=== PATIENT | female | born 1945 | race Caucasian/White ===

== ENCOUNTER → 2016-07-09 | Outpatient (CLI) | payer OTHER ==
[~2016-07-09] MED LIST: ADVA500A INH; ALBU6.7H INH; DOXY100T PO; FERR324T4 PO; FLON0.053; HYDR-2768 PO; OYST500T77 PO; PRED20 PO; PRIN20TA2 PO; VITA500T10 PO
--- NOTE | 2016-07-09 14:15 | RSPPFT ---
DATE OF PROCEDURE: 07/09/16 COMMENTS: VOLUMES DYNAMIC: FVC and FEV1 severely reduced. STATIC: RV mildly increased; TLC mildly reduced; VTG normal. FLOWS: FEV1% moderately reduced; FEF 25-75 severely reduced. DIFFUSION: Mildly reduced. FLOW VOLUME LOOP: Pattern of variable intrathoracic airways obstruction. IMPRESSION: Moderate to severe obstructive ventilatory defect with a mild reduction in diffusion. Minimal hyperinflation is present. Airways resistance is increased. There is improvement post-bronchodilator.
== END ==
LOC: HRSP 09:35
PROVIDERS: ATTEND Internal Medicine
DX: J45.909 Unspecified asthma, uncomplicated (principal)
CPT/HCPCS: 94060; 94620; 94726; 94729; 95012

== ENCOUNTER 2017-04-01 10:25 | Emergency (ER) | payer OTHER ==
[~2017-04-01] VITALS: Ht 170.2 cm; Wt 61.0 kg
[2017-04-01 10:27] VITALS: BP 137/92; PULSE 100; RESP 20; TEMP 97.6; O2SAT 96
[2017-04-01 10:42] VITALS: BP 157/74; PULSE 73; RESP 17; O2SAT 98
[2017-04-01] MEDS ORDERED: DILT120T PO (10:42)
[2017-04-01] MEDS ORDERED: METO50TA PO (10:42)
[2017-04-01] MEDS ORDERED: APIX5TAB PO (10:42)
[2017-04-01 11:22] LABS: AUTOMATED NEUTROPHIL # 7.2 TH/MM3 (1.8-7.7); BASOPHIL # 0.2 TH/MM3 (0-0.2); BASOPHIL % 1.4 % (0.0-2.0); EOSINOPHIL # 2.9 TH/MM3 (0-0.4); EOSINOPHIL % 22.1 % (0.0-4.0); HEMATOCRIT 38.8 % (35.0-46.0); HEMOGLOBIN 12.5 GM/DL (11.6-15.3); LYMPH % 15.3 % (9.0-44.0); MEAN CELL VOLUME 67.1 FL (80.0-100.0); MEAN CORPUSCULAR HEMOGLOBIN 21.5 PG (27.0-34.0); MEAN CORPUSCULAR HGB CONC 32.1 % (32.0-36.0); MONO % 6.9 % (0.0-8.0); MONOCYTE # 0.9 TH/MM3 (0-0.9); NEUT % 54.3 % (16.0-70.0); PLATELET COUNT 332 TH/MM3 (150-450); RED BLOOD COUNT 5.79 MIL/MM3 (4.00-5.30); WHITE BLOOD COUNT 13.3 TH/MM3 (4.0-11.0)
[2017-04-01 11:33] LABS: INTERNATIONAL NORMALIZED RATIO 1.1 RATIO; PROTHROMBIN TIME - PATIENT 10.8 SEC (9.8-11.6)
[2017-04-01 11:47] LABS: ALBUMIN 3.7 GM/DL (3.4-5.0); ALT (GPT) 20 U/L (10-53); AST (GOT) 23 U/L (15-37); BICARBONATE 32.8 MEQ/L (21.0-32.0); BLOOD UREA NITROGEN 30 MG/DL (7-18); CALCIUM 9.8 MG/DL (8.5-10.1); CHLORIDE 97 MEQ/L (98-107); CREATININE 1.13 MG/DL (0.50-1.00); GLOMERULAR FILTRATION RATE 48 ML/MIN (>89); GLUCOSE,RANDOM 89 MG/DL (74-106); SODIUM (NA) 136 MEQ/L (136-145)
[2017-04-01 11:51] LABS: ALKALINE PHOSPHATASE 45 U/L (45-117); TOTAL BILIRUBIN ADULT 0.5 MG/DL (0.2-1.0); TOTAL PROTEIN 7.3 GM/DL (6.4-8.2); TROPONIN I LESS THAN 0.02 NG/ML (0.02-0.05)
[2017-04-01 12:10] VITALS: BP 114/78; PULSE 71; RESP 16; TEMP 97.8; O2SAT 99
--- NOTE | 2017-04-01 12:28 | PD ---
HPI Chief Complaint: Cardiac Complaint Time Seen by Provider: 10:33 Travel History International Travel<30 days: No Contact w/Intl Traveler<30days: No Traveled to known affect area: No History of Present Illness HPI This is a 71-year-old female who presents to the emergency department with 3 days of palpitations, feeling her heart is intermittently racing, feeling her extra heartbeats in her chest, constant, moderate severity, associated with some shortness of breath and dyspnea on exertion. She denies any chest pain. She says this feels similar to when she's been in atrial flutter in the past. She has a history of prior ablation and cardioversion. She follows with Dr. Waters. She also has had a recent upper respiratory infection and has been using her bronchodilators more often due to cough. PFSH Past Medical History Hx Anticoagulant Therapy: Yes (ELOQUIS) Asthma: Yes Autoimmune Disease: Yes (CHURG-THONY SYNDROME) Cardiovascular Problems: Yes (PVD) Diminished Hearing: No Hypertension: Yes Neurologic: Yes (NEUROPATHY) Tetanus Vaccination: > 5 Years Influenza Vaccination: Yes Menopausal: Yes : 2 Para: 2 Past Surgical History Appendectomy: Yes Cholecystectomy: Yes Eye Surgery: Yes (BILAT. CATARACTS) Tonsillectomy: Yes Other Surgery: Yes (BREAST REDUCTION, SKIN GRAFTS) Social History Alcohol Use: No Tobacco Use: No (40 years ago ) Substance Use: No Allergies-Medications (Allergen,Severity, Reaction): Coded Allergies: Sulfa (Sulfonamide Antibiotics) (Unverified Allergy, Severe, Anaphylaxis, 04/01/17) Reported Meds & Prescriptions Reported Meds & Active Scripts Active Review of Systems Except as stated in HPI: all other systems reviewed are Neg Physical Exam Narrative GENERAL:Well appearing, no acute distress SKIN: Focused skin assessment warm and dry. HEAD: Atraumatic. Normocephalic. EYES: Pupils equal and round. No injection or drainage. ENT: Moist mucous membranes NECK: Trachea midline. CARDIOVASCULAR: Regular rate and rhythm. No murmur appreciated. RESPIRATORY: Clear to auscultation. Breath sounds equal bilaterally. GASTROINTESTINAL: Abdomen soft, non-tender, nondistended. MUSCULOSKELETAL: No obvious deformities. NEUROLOGICAL: Awake and alert. No obvious cranial nerve deficits. Moving all extremities. PSYCHIATRIC: Appropriate mood and affect; insight and judgment normal. Data Data Last Documented VS Vital Signs Date Time Temp Pulse Resp B/P (MAP) Pulse Ox O2 Delivery O2 Flow Rate FiO2 04/01/17 13:50 97.8 76 16 132/81 (98) 98 04/01/17 12:10 Room Air Orders Orders Complete Blood Count With Diff (04/01/17 11:03) Comprehensive Metabolic Panel (04/01/17 11:03) Troponin I (04/01/17 11:03) ^ Insert Iv (04/01/17 11:03) Prothrombin Time / Inr (Pt) (04/01/17 11:03) Act Partial Throm Time (Ptt) (04/01/17 11:03) Ed Discharge Order (04/01/17 13:43) Electrocardiogram (04/01/17 12:46) Electrocardiogram (04/01/17 10:42) Labs Laboratory Tests Test 04/01/17 10:55 White Blood Count 13.3 TH/MM3 Red Blood Count 5.79 MIL/MM3 Hemoglobin 12.5 GM/DL Hematocrit 38.8 % Mean Corpuscular Volume 67.1 FL Mean Corpuscular Hemoglobin 21.5 PG Mean Corpuscular Hemoglobin Concent 32.1 % Red Cell Distribution Width 16.0 % Platelet Count 332 TH/MM3 Mean Platelet Volume 9.0 FL Neutrophils (%) (Auto) 54.3 % Lymphocytes (%) (Auto) 15.3 % Monocytes (%) (Auto) 6.9 % Eosinophils (%) (Auto) 22.1 % Basophils (%) (Auto) 1.4 % Neutrophils # (Auto) 7.2 TH/MM3 Lymphocytes # (Auto) 2.0 TH/MM3 Monocytes # (Auto) 0.9 TH/MM3 Eosinophils # (Auto) 2.9 TH/MM3 Basophils # (Auto) 0.2 TH/MM3 CBC Comment DIFF FINAL Differential Comment Prothrombin Time 10.8 SEC Prothromb Time International Ratio 1.1 RATIO Activated Partial Thromboplast Time 25.2 SEC Blood Urea Nitrogen 30 MG/DL Creatinine 1.13 MG/DL Random Glucose 89 MG/DL Total Protein 7.3 GM/DL Albumin 3.7 GM/DL Calcium Level 9.8 MG/DL Alkaline Phosphatase 45 U/L Aspartate Amino Transf (AST/SGOT) 23 U/L Alanine Aminotransferase (ALT/SGPT) 20 U/L Total Bilirubin 0.5 MG/DL Sodium Level 136 MEQ/L Potassium Level 4.0 MEQ/L Chloride Level 97 MEQ/L Carbon Dioxide Level 32.8 MEQ/L Anion Gap 6 MEQ/L Estimat Glomerular Filtration Rate 48 ML/MIN Troponin I LESS THAN 0.02 NG/ML MDM Medical Decision Making Medical Screen Exam Complete: Yes Emergency Medical Condition: Yes Interpretation(s) afebrile, tachycardic, hypertensive leukocytosis 22% eosinophils electrolytes reassuring troponin normal EKG: atrial flutter, st depression in the lateral leads Differential Diagnosis Atrial flutter, atrial fibrillation, myocardial infarction, angina, electrolyte abnormality Narrative Course This is a 71-year-old female who presents to the emergency department with palpitations and weakness for the past several days. She has a history of atrial flutter which is been treated by both ablation and cardioversion in the past. Here in the emergency department she is in atrial flutter and her rate is controlled. She is placed on a monitor and an IV was established. Labs were obtained which were all reassuring. I spoke to Dr. Jaya Watesr who wants her to follow-up in the office after discharge from the emergency department and he plans to do a cardioversion tomorrow. Patient was discharged home. Diagnosis Primary Impression: Atrial flutter Qualified Codes: I48.3 - Typical atrial flutter Patient Instructions: General Instructions Additional Instructions: If you develop severe chest pain, shortness of breath, sweating, lightheadedness , dizziness or difficulty breathing return to the emergency department immediately. Follow up with Dr. Waters's office this afternoon to be evaluated prior to cardioversion tomorrow. Med/Other Pt SpecificInfo: No Change to Meds Disposition: 01 DISCHARGE HOME Condition: Stable Elisabeth Barba MD Apr 01, 2017 12:28
[2017-04-01 13:50] VITALS: BP 132/81; TEMP 97.8
[2017-04-02] MEDS ORDERED: MULTTAB67 PO (08:49)
[2017-04-02] MEDS ORDERED: FLUT1INH INH (08:49)
[2017-04-02] MEDS ORDERED: IMUR50TA5 PO (08:49)
[2017-04-02] MEDS ORDERED: FLUT1SPR5 EACH NARE (08:49)
[2017-04-02] MEDS ORDERED: HYDR12.57 PO (08:49)
[2017-04-02] MEDS ORDERED: HYDR-3516 PO (08:49)
[2017-04-02] MEDS ORDERED: VITA1000 PO (08:49)
[2017-04-02] MEDS ORDERED: SOTA80TA PO (08:49)
[2017-04-02] MEDS ORDERED: DIGO0.12 PO (08:49)
[2017-04-02] MEDS ORDERED: COQ-100C5 PO (08:49)
[2017-04-02] MEDS ORDERED: ALBU6.7H INH (08:49)
[2017-04-02] MEDS ORDERED: KRIL1CAP21 PO (08:49)
[2017-04-02] MEDS ORDERED: VITA250T3 PO (08:49)
[2017-04-02] MEDS ORDERED: HYDR-4107 PO ×2 (08:49)
[2017-04-02] MEDS ORDERED: LISI-515 PO (08:49)
--- NOTE | 2017-04-04 00:03 | EKG ---
Date Performed: 04/01/2017 Time Performed: 12:46:15 PTAGE: 71 years EKG: Sinus rhythm WITH FIRST DEGREE AV BLOCK NO PREVIOUS TRACING DOCTOR: Jasper Barraza Interpretating Date/Time 04/04/2017 00:01:50
--- NOTE | 2017-04-04 00:10 | EKG ---
Date Performed: 04/01/2017 Time Performed: 10:42:26 PTAGE: 71 years EKG: ATRIAL FLUTTER/TACHYCARDIA SEPTAL MYOCARDIAL INFARCTION NO PREVIOUS TRACING DOCTOR: Jasper Barraza Interpretating Date/Time 04/04/2017 00:08:18
== END 2017-04-01 13:50 | disposition home or self-care (01) ==
LOC: NEPE 10:25
DX: I48.3 Typical atrial flutter (principal); J45.909 Unspecified asthma, uncomplicated; I73.9 Peripheral vascular disease, unspecified; I10 Essential (primary) hypertension; G62.9 Polyneuropathy, unspecified; M30.1 Polyarteritis with lung involvement [Churg-Strauss]; R06.02 Shortness of breath
CPT/HCPCS: 80053; 84484; 85025; 85610; 85730; 93005; 99284

== ENCOUNTER 2017-04-02 07:20 | Day surgery (SDC) | payer OTHER ==
[~2017-04-02 07:20] MED LIST changes: -ADVA500A INH; -ALBU6.7H INH; +APIX5TAB PO; +DILT120T PO; -DOXY100T PO; -FERR324T4 PO; -FLON0.053; -HYDR-2768 PO; +METO50TA PO; -OYST500T77 PO; -PRED20 PO; -PRIN20TA2 PO; -VITA500T10 PO
[2017-04-02] MEDS ORDERED: SODIUM CHLORID 0.9% 500 ML IV PRN (08:15)
[2017-04-02] MEDS ORDERED: POVIDONE IODINE 5% (ANTISEPSIS KIT) 4 APPLICATIONS EACH NARE PRN (08:15)
[2017-04-02] MEDS ORDERED: LACTATED RINGER'S 1000 ML IV PRN (08:15)
[2017-04-02] MEDS ORDERED: METOPROLOL TARTRATE 25 MG TAB PO PRN (08:15)
[2017-04-02] MEDS ORDERED: CHLORHEXIDINE GLUCONATE 2 % 1 PACK (2 CLOTHS) TOPICAL PRN (08:15)
[2017-04-02] MEDS ORDERED: INSULIN HUMAN REGULAR 1,000 UNITS/10 ML VIAL SQ PRN (08:15)
[2017-04-02] MEDS ORDERED: HYDR-4107 PO ×2 (08:49)
[2017-04-02] MEDS ORDERED: VITA1000 PO (08:49)
[2017-04-02] MEDS ORDERED: HYDR12.57 PO (08:49)
[2017-04-02] MEDS ORDERED: COQ-100C5 PO (08:49)
[2017-04-02] MEDS ORDERED: IMUR50TA5 PO (08:49)
[2017-04-02] MEDS ORDERED: ALBU6.7H INH (08:49)
[2017-04-02] MEDS ORDERED: FLUT1SPR5 EACH NARE (08:49)
[2017-04-02] MEDS ORDERED: MULTTAB67 PO (08:49)
[2017-04-02] MEDS ORDERED: KRIL1CAP21 PO (08:49)
[2017-04-02] MEDS ORDERED: HYDR-3516 PO (08:49)
[2017-04-02] MEDS ORDERED: DIGO0.12 PO (08:49)
[2017-04-02] MEDS ORDERED: FLUT1INH INH (08:49)
[2017-04-02] MEDS ORDERED: LISI-515 PO (08:49)
[2017-04-02] MEDS ORDERED: SOTA80TA PO (08:49)
[2017-04-02] MEDS ORDERED: VITA250T3 PO (08:49)
[2017-04-02] MEDS ORDERED: PROPOFOL 200 MG/20 ML AMP IV ONE (12:00)
--- NOTE | 2017-04-02 15:09 | MA ---
cc: ANDREIA LEDEZMA M.D. DATE 04/02/2017 PREOPERATIVE DIAGNOSIS Atrial flutter. POSTOPERATIVE DIAGNOSIS Atrial flutter. PROCEDURE Synchronized cardioversion. DESCRIPTION OF PROCEDURE The patient was sedated by Anesthesia. She received a synchronized 50 joule shock which converted her from atrial flutter to normal sinus rhythm. There were no complications. DISPOSITION She is discharged home on the same medication she was taking previously including her Eliquis. She is to have follow-up with Dr. Barraza for consideration of ablation. MD SHARMAINE Sawant/PASQUALE /1:54 PM /2:38 PM
--- NOTE | 2017-04-03 18:35 | EKG ---
Date Performed: 04/02/2017 Time Performed: 09:13:36 PTAGE: 71 years EKG: Sinus bradycardia with PVC(s) with borderline 1st degree A-V block Leftward axis Inferior i nfarct - age undetermined Possible anteroseptal infarct - age undetermined Abnormal ECG PREVIOUS TRACING : 04/02/2017 07.57 DOCTOR: Jasper Barraza Interpretating Date/Time 04/03/2017 18:34:11
--- NOTE | 2017-04-03 19:14 | EKG ---
Date Performed: 04/02/2017 Time Performed: 07:57:20 PTAGE: 71 years EKG: Sinus rhythm with 1st degree A-V block. Left axis deviation Incomplete LBBB Possible anteroseptal infarct - age u ndetermined Left ventricular hypertrophy Abnormal ECG PREVIOUS TRACING : 04/01/2017 12.46 DOCTOR: Jasper Barraza Interpretating Date/Time 04/03/2017 19:13:58
== END 2017-04-02 10:57 | disposition home or self-care (01) ==
LOC: HDOC 07:20
PROVIDERS: ATTEND Internal Medicine Cardiovascular Disease
DX: I48.92 Unspecified atrial flutter (principal); I10 Essential (primary) hypertension; I73.9 Peripheral vascular disease, unspecified; Z79.01 Long term (current) use of anticoagulants
CPT/HCPCS: 92960; 93005